=== PATIENT | female | born 1940 | race Caucasian/White ===

== ENCOUNTER 2016-10-27 08:05 | Outpatient (CLI) ==
[2016-10-27 12:35] LABS: BASOPHILS % (AUTO) 0.5 % (0.0-3.0); EOSINOPHILS # (AUTO) 0.1 K/ul (0.0-0.7); HEMATOCRIT 40.3 % (37.0-47.0); HEMOGLOBIN 13.2 g/dl (12.0-16.0); IMMATURE GRANULOCYTE % (AUTO) 0.5 % (0.0-5.0); LYMPHOCYTES # (AUTO) 1.7 K/uL (0.60-3.4); LYMPHOCYTES % (AUTO) 28.5 (10.0-50.0); MEAN CORPUSCULAR HEMOGLOBIN 29.3 pg (27.0-31.0); MEAN CORPUSCULAR HGB CONC 32.8 (31.8-35.4); MEAN CORPUSCULAR VOLUME 89.6 fl (81.0-99.0); MONOCYTES # (AUTO) 0.4 K/uL (0.4-2.0); MONOCYTES % (AUTO) 6.7 (0-10); NEUTROPHILS # (AUTO) 3.8 K/ul (2.0-6.9); NEUTROPHILS % (AUTO) 62.8; PLATELET COUNT 310 10^3/uL (140-440); WHITE BLOOD COUNT 6.08 K/ul (4.6-10.2)
[2016-10-27 12:47] LABS: BILIRUBIN,URINE Negative (NEGATIVE); KETONES,URINE Negative (NEGATIVE); LEUKOCYTE ESTERASE ,URINE Trace (NEGATIVE); NITRITE,URINE Negative (NEGATIVE); PH,URINE 7.5 (5-9); PROTEIN,URINE Negative (NEGATIVE); URINE, BLOOD Trace-intact (NEGATIVE)
[2016-10-27 12:51] LABS: ADD URINE MICROSCOPIC YES; BACTERIA,URINE TRACE (NOT PRESENT)
[2016-10-27 12:52] LABS: ALBUMIN 3.4 g/dL (3.4-5.0); ALBUMIN/GLOBULIN RATIO 1.03; ANION GAP 12.4; BILIRUBIN,TOTAL 0.62 mg/dL (0.00-1.20); BUN/CREATININE RATIO 14.86; CALCIUM 9.1 mg/dL (8.2-10.2); CHOL/HDL RATIO 5.9 (4.5-5.5); CREATININE 0.74 mg/dL (0.60-1.30); POTASSIUM 4.4 mmol/L (3.5-5.10); TOTAL PROTEIN 6.7 g/dL (5.8-8.1)
== END 2016-10-27 08:06 | disposition home or self-care (01) ==
LOC: LAB 08:05
PROVIDERS: ATTEND General Practice
DX: I10 Essential (primary) hypertension (principal); E78.5 Hyperlipidemia, unspecified; R31.29 Other microscopic hematuria; Z79.899 Other long term (current) drug therapy
CPT/HCPCS: 36415; 80053; 80061; 81001; 85025

== ENCOUNTER 2017-02-01 11:36 | Outpatient (CLI) ==
[2017-02-01 13:51] LABS: BILIRUBIN,URINE Negative (NEGATIVE); KETONES,URINE Negative (NEGATIVE); LEUKOCYTE ESTERASE ,URINE Negative (NEGATIVE); NITRITE,URINE Negative (NEGATIVE); PROTEIN,URINE Negative (NEGATIVE); URINE, BLOOD Trace-intact (NEGATIVE)
[2017-02-01 13:54] LABS: ADD URINE MICROSCOPIC YES
[2017-02-01 13:57] LABS: BACTERIA,URINE TRACE (NOT PRESENT)
== END 2017-02-01 11:37 | disposition home or self-care (01) ==
LOC: LAB 11:36
PROVIDERS: ATTEND General Practice
DX: N39.0 Urinary tract infection, site not specified (principal)
CPT/HCPCS: 81001

== ENCOUNTER 2017-02-22 08:14 | Outpatient (CLI) ==
[2017-02-22 12:39] LABS: BASOPHILS % (AUTO) 0.3 % (0.0-3.0); EOSINOPHILS # (AUTO) 0.1 K/ul (0.0-0.7); EOSINOPHILS % (AUTO) 2.4 % (0.0-7.0); HEMATOCRIT 39.1 % (37.0-47.0); HEMOGLOBIN 12.9 g/dl (12.0-16.0); IMMATURE GRANULOCYTE % (AUTO) 0.5 % (0.0-5.0); LYMPHOCYTES # (AUTO) 1.6 K/uL (0.60-3.4); LYMPHOCYTES % (AUTO) 27.6 (10.0-50.0); MEAN CORPUSCULAR HEMOGLOBIN 29.6 pg (27.0-31.0); MEAN CORPUSCULAR VOLUME 89.7 fl (81.0-99.0); MONOCYTES # (AUTO) 0.4 K/uL (0.4-2.0); MONOCYTES % (AUTO) 7.4 (0-10); NEUTROPHILS # (AUTO) 3.6 K/ul (2.0-6.9); NEUTROPHILS % (AUTO) 61.8; PLATELET COUNT 287 10^3/uL (140-440); RED BLOOD COUNT 4.36 10^6/ul (4.20-5.40); WHITE BLOOD COUNT 5.83 K/ul (4.6-10.2)
[2017-02-22 12:41] LABS: BILIRUBIN,URINE Negative (NEGATIVE); KETONES,URINE Negative (NEGATIVE); LEUKOCYTE ESTERASE ,URINE 1+ (NEGATIVE); NITRITE,URINE Negative (NEGATIVE); PH,URINE 6.5 (5-9); PROTEIN,URINE Negative (NEGATIVE); URINE, BLOOD 1+ (NEGATIVE)
[2017-02-22 12:50] LABS: ALBUMIN 3.4 g/dL (3.4-5.0); ALBUMIN/GLOBULIN RATIO 1.17; ANION GAP 14.3; BILIRUBIN,TOTAL 0.58 mg/dL (0.00-1.20); BUN/CREATININE RATIO 15.27; CALCIUM 9.1 mg/dL (8.2-10.2); CHOL/HDL RATIO 5.2 (4.5-5.5); CREATININE 0.72 mg/dL (0.60-1.30); POTASSIUM 4.3 mmol/L (3.5-5.10); TOTAL PROTEIN 6.3 g/dL (5.8-8.1)
[2017-02-22 12:55] LABS: ADD URINE MICROSCOPIC YES
[2017-02-22 12:57] LABS: BACTERIA,URINE TRACE (NOT PRESENT)
== END 2017-02-22 08:15 | disposition home or self-care (01) ==
LOC: LAB 08:14
PROVIDERS: ATTEND General Practice
DX: E78.5 Hyperlipidemia, unspecified (principal); I10 Essential (primary) hypertension; K57.32 Diverticulitis of large intestine without perforation or abscess without bleeding; Z79.899 Other long term (current) drug therapy
CPT/HCPCS: 36415; 80053; 80061; 81001; 85025; 87086

== ENCOUNTER 2017-06-07 09:47 | Outpatient (CLI) ==
--- NOTE | 2017-06-08 08:51 | MAMMO ---
EXAM: Digital screening mammogram HISTORY: Screening COMPARISON: 05/29/2013 FINDINGS: Digital MLO and CC views of the right and left breast were performed. Computer aided de tection was utilized. There are scattered fibroglandular densities. There is no evidence for mass, asymmetry, distortion, or suspicious calcifications in either breast. IMPRESSION: 1. No evidence of malignancy in the right or left breast. 2. Annual screening mammogram is recommended in one year. BIRADS category 1, negative examination
== END 2017-06-07 09:48 | disposition home or self-care (01) ==
LOC: RAD 09:47
PROVIDERS: ATTEND General Practice
DX: Z12.31 Encounter for screening mammogram for malignant neoplasm of breast (principal)
CPT/HCPCS: 77067

== ENCOUNTER 2017-09-07 12:34 | Outpatient (CLI) ==
[2017-09-07 13:23] LABS: BILIRUBIN,URINE Negative (NEGATIVE); KETONES,URINE Negative (NEGATIVE); LEUKOCYTE ESTERASE ,URINE Trace (NEGATIVE); NITRITE,URINE Negative (NEGATIVE); PROTEIN,URINE Negative (NEGATIVE); URINE, BLOOD Trace-lysed (NEGATIVE)
[2017-09-07 13:29] LABS: ADD URINE MICROSCOPIC NO; BASOPHILS % (AUTO) 0.3 % (0.0-3.0); EOSINOPHILS # (AUTO) 0.1 K/ul (0.0-0.7); EOSINOPHILS % (AUTO) 0.9 % (0.0-7.0); HEMATOCRIT 40.3 % (37.0-47.0); HEMOGLOBIN 13.6 g/dl (12.0-16.0); IMMATURE GRANULOCYTE % (AUTO) 0.4 % (0.0-5.0); LYMPHOCYTES # (AUTO) 1.6 K/uL (0.60-3.4); MEAN CORPUSCULAR HEMOGLOBIN 29.9 pg (27.0-31.0); MEAN CORPUSCULAR HGB CONC 33.7 (31.8-35.4); MEAN CORPUSCULAR VOLUME 88.6 fl (81.0-99.0); MONOCYTES # (AUTO) 0.5 K/uL (0.4-2.0); MONOCYTES % (AUTO) 6.8 (0-10); NEUTROPHILS # (AUTO) 4.6 K/ul (2.0-6.9); NEUTROPHILS % (AUTO) 67.6; PLATELET COUNT 342 10^3/uL (140-440); RED BLOOD COUNT 4.55 10^6/ul (4.20-5.40)
[2017-09-07 14:13] LABS: ALBUMIN 3.4 g/dL (3.4-5.0); ALBUMIN/GLOBULIN RATIO 1.03; ANION GAP 13.4; BILIRUBIN,TOTAL 0.54 mg/dL (0.00-1.20); BUN/CREATININE RATIO 17.14; CALCIUM 9.3 mg/dL (8.2-10.2); CREATININE 0.7 mg/dL (0.60-1.30); POTASSIUM 4.4 mmol/L (3.5-5.10); TOTAL PROTEIN 6.7 g/dL (5.8-8.1)
[2017-09-08 08:24] LABS: CHOL/HDL RATIO 5.7 (4.5-5.5)
== END 2017-09-07 12:35 | disposition home or self-care (01) ==
LOC: LAB 12:34
PROVIDERS: ATTEND General Practice
DX: I10 Essential (primary) hypertension (principal); Z79.899 Other long term (current) drug therapy
CPT/HCPCS: 36415; 80053; 80061; 81001; 84439; 85025

== ENCOUNTER 2018-01-02 09:11 | Outpatient (CLI) | END 2018-01-02 09:12 | disposition home or self-care (01) | LOC: FCC-LAB 09:11 | PROVIDERS: ATTEND General Practice | DX: E78.1 Pure hyperglyceridemia (principal); E55.9 Vitamin D deficiency, unspecified; Z79.899 Other long term (current) drug therapy | CPT/HCPCS: 36415; 80053; 80061; 81001; 82306; 85025 ==

== ENCOUNTER 2018-03-17 15:29 | Outpatient (CLI) ==
--- NOTE | 2018-03-17 15:50 | DI ---
EXAM: Two views of the chest. History: Fever. Findings: Heart size is normal. No focal consolidation. No appreciable pleural fluid and no pneumo thorax. No acute osseous abnormalities. Impression: No acute cardiopulmonary process.
== END 2018-03-17 15:30 | disposition home or self-care (01) ==
LOC: LAB 15:29
PROVIDERS: ATTEND General Practice
DX: R50.9 Fever, unspecified (principal)
CPT/HCPCS: 36415; 80053; 81001; 85025; 85651; 87086; 87651; 87804

== ENCOUNTER 2018-03-17 16:53 | Emergency (ER) | payer OTHER ==
[2018-03-17 16:59] VITALS: BP 107/62; TEMP 98.2; BMI 24.9
--- NOTE | 2018-03-17 18:08 | ED.PDOC ---
General ED Provider: Dr. HAI STERN MD Chief Complaint: Syncope Stated Complaint: i was lightheaded and fainted Time Seen by Physician: 17:08 Mode of Arrival: Ambulance Information Source: Patient, EMT Exam Limitations: No limitations [facility] Within Last 72 Hours for Same Complaint By: PCP Nursing and Triage Documentation Reviewed and Agree: Yes Reviewed sepsis parameters & appropriate labs ordered?: No System Inflammatory Response Syndrome: Not Applicable Sepsis Protocol: For patient's 13 years and over: Temp is 96.8 and below OR 101 and greater Pulse >90 BPM Resp >20/minute Acutely Altered Mental Status Are patient's symptoms suggestive of a new infection, such as: -Pneumonia -Skin, Soft Tissue -Endocarditis -UTI -Bone, Joint Infection -Implantable Device -Acute Abdominal Infection -Wound Infection -Meningitis -Blood Stream Catheter Infection -Unknown Review of Systems - Review Of Systems Constitutional: Reports: Chills Eyes: Reports: No symptoms Ears, Nose, Mouth, Throat: Reports: No symptoms Respiratory: Reports: No symptoms Cardiac: Reports: Syncope GI: Reports: No symptoms : Reports: No symptoms Musculoskeletal: Reports: No symptoms Skin: Reports: No symptoms Neurological: Reports: No symptoms Endocrine: Reports: No symptoms Hematologic/Lymphatic: Reports: No symptoms All Other Systems: Reviewed and Negative Past Medical History - Past Medical History Previously Healthy: Yes Endocrine: Reports: None Cardiovascular: Reports: None Respiratory: Reports: None Hematological: Reports: None Gastrointestinal: Reports: None Genitourinary: Reports: None Neuro/Psych: Reports: None Musculoskeletal: Reports: None Cancer: Reports: None Last Menstrual Period: n/a - Surgical History General Surgical History: Reports: None - Family History Family History: Reports: None - Social History Smoking Status: Never smoker Hx Substance Use: No Alcohol Screening: None Physical Exam - Physical Exam Appearance: Well-appearing, No pain distress, Well-nourished, Thin Ill-appearing: None Pain Distress: None Eyes: DAYDAY, EOMI, Conjunctiva clear ENT: Ears normal, Nose normal, Oropharynx normal Respiratory: Airway patent, Breath sounds clear, Breath sounds equal, Respirations nonlabored Cardiovascular: RRR, Pulses normal, No rub, No murmur GI/: Soft, Nontender, No masses, Bowel sounds normal, No Organomegaly Musculoskeletal: Normal strength, ROM intact, No edema, No calf tenderness Skin: Warm, Dry, Normal color Neurological: Sensation intact, Motor intact, Reflexes intact, Cranial nerves intact, Alert, Oriented Psychiatric: Affect appropriate, Mood appropriate Interpretation - EKG Interpretation Rate: Normal Critical Care Note - Critical Care Note Total Time (mins): 0 Course - Course Orders, Labs, Meds: Orders Category Date Time Status EKG-(ED ONLY) Stat CARDIO 03/17/18 17:13 Completed Vital Signs: Temp Pulse Resp BP Pulse Ox 03/17/18 16:54 98.2 F 72 20 107/62 95 Departure - Departure Time of Disposition: 18:15 Disposition: HOME SELF-CARE Discharge Problem: Syncope Condition: Good Pt referred to PMD for follow-up: Yes IPMP verified?: No Allergies/Adverse Reactions: Allergies influenza virus vaccine, specific Allergy (Verified 03/17/18 16:59) CHILLS, FEVER Home Medications: Ambulatory Orders Flaxseed Oil [Flax Seed Oil] 1,000 mg PO DAILY 05/07/15 Lisinopril/Hydrochlorothiazide [Lisinopril-Hctz 10-12.5 Mg Tab] 0.5 each PO DAILY 05/07/15 Calcium Carbonate/Vitamin D3 [Calcium + Vitamin D Tablet] 1 each PO DAILY #30 tab-cap 10/01/15
[2018-03-17] MEDS: SOLU-MEDROL 40 MG IVP STA (18:15)
[2018-03-17] MEDS: ZOFRAN 4 MG/2 ML IVP STA (18:22)
== END 2018-03-17 18:43 | disposition home or self-care (01) ==
LOC: ED 16:53
DX: R55 Syncope and collapse (principal); R56.9 Unspecified convulsions; R50.9 Fever, unspecified; R53.1 Weakness; R11.0 Nausea; R22.1 Localized swelling, mass and lump, neck
CPT/HCPCS: 36415; 80053; 81001; 85025; 85651; 87086; 87651; 87804; 93005; 93010; 96374; 96375; 99283

== ENCOUNTER 2018-03-18 19:01 | Inpatient (IN) | payer OTHER ==
[2018-03-18 19:54] VITALS: BMI 24.0
[2018-03-18] MEDS ORDERED: LOTRIMIN TP PRN (21:21)
[2018-03-18] MEDS ORDERED: [UNRECOGNIZED DRUG - MIXTURE] IV SCH (21:30)
[2018-03-18] MEDS ORDERED: POTASSIUM CHLORIDE 20 MEQ VIAL-ADDITIVE ONLY IV ONE (23:12)
[2018-03-19] MEDS: DOXY-100 100 MG in SODIUM CHLORIDE 100 ML IV SCH ×3 (00:29→21:28)
[2018-03-19] MEDS: FLAXSEED OIL 1000 MG PO SCH (08:38)
[2018-03-19] MEDS: HYDROCHLOROTHIAZIDE PO SCH (08:45)
[2018-03-19] MEDS: ZESTRIL PO SCH (08:46)
[2018-03-19] MEDS ORDERED: NON-FORMULARY MEDICATION (Calcium Carbonate/Vitamin D3 [Calcium 600-Vit D3 200 Tablet] 1 E PO SCH (09:00)
[2018-03-19] MEDS ORDERED: CALCIUM 500 + VIT D 200 MG TABLET PO SCH (09:00)
[2018-03-19] MEDS: NON-FORMULARY MEDICATION (Calcium Carb/Vitamin D3/Vit K1 [Calcium + D Soft Chewable Tab] 1 PO SCH (09:01)
[2018-03-19] MEDS ORDERED: POTASSIUM CHLORIDE 20 MEQ VIAL-ADDITIVE ONLY IV ONE ×2 (15:44→21:59)
[2018-03-19] MEDS: [UNRECOGNIZED DRUG - MIXTURE] IV SCH ×2 (15:54→22:04)
[2018-03-20] MEDS: HYDROCHLOROTHIAZIDE PO SCH (10:53)
[2018-03-20] MEDS: DOXY-100 100 MG in SODIUM CHLORIDE 100 ML IV SCH ×2 (10:53→21:00)
[2018-03-20] MEDS: ZESTRIL PO SCH (10:54)
[2018-03-20] MEDS: FLAXSEED OIL 1000 MG PO SCH (11:08)
[2018-03-20] MEDS: NON-FORMULARY MEDICATION (Calcium Carb/Vitamin D3/Vit K1 [Calcium + D Soft Chewable Tab] 1 PO SCH (11:08)
[2018-03-20] MEDS ORDERED: POTASSIUM CHLORIDE 20 MEQ VIAL-ADDITIVE ONLY IV ONE (14:06)
[2018-03-20] MEDS: [UNRECOGNIZED DRUG - MIXTURE] IV SCH (14:14)
[2018-03-21] MEDS ORDERED: POTASSIUM CHLORIDE 20 MEQ VIAL-ADDITIVE ONLY IV ONE (06:18)
[2018-03-21] MEDS: [UNRECOGNIZED DRUG - MIXTURE] IV SCH ×2 (06:24→08:19)
[2018-03-21] MEDS: DOXY-100 100 MG in SODIUM CHLORIDE 100 ML IV SCH (08:18)
[2018-03-21] MEDS: HYDROCHLOROTHIAZIDE PO SCH (08:18)
[2018-03-21] MEDS: NON-FORMULARY MEDICATION (Calcium Carb/Vitamin D3/Vit K1 [Calcium + D Soft Chewable Tab] 1 PO SCH (08:19)
[2018-03-21] MEDS: ZESTRIL PO SCH (08:19)
[2018-03-21] MEDS: FLAXSEED OIL 1000 MG PO SCH (08:19)
[2018-03-21 15:15] VITALS: BP 127/70; TEMP 98.8
--- NOTE | 2018-03-23 11:38 | HP ---
DATE OF SERVICE: 03/18/18 DATE OF VISIT: 03/18/18 CHIEF COMPLAINT: Fatigue, fever, dizziness and syncope. HISTORY OF PRESENT ILLNESS: The patient about two weeks or more was in a dealership waiting for her care to be fixed and a blower was directed towards her left side of the face. The patient after that experienced pain and swelling on the left side of the face extending towards the back of the ear. She claimed that the area was markedly tender and painful. She also felt chilly sensations, however she did not use a thermometer to see she had any fever. The swelling had subsided. She finally came to the office on 03/17/2018 because of persistent fever or 100 or slightly beyond. The patient mentioned that she had removed ticks from her head several times. The patient on examination appeared to be somewhat tired, responsive and oriented. No significant abnormalities were noted on physical examination. The patient was sent for blood tests, as well as chest x-ray to help in the determination of her problems. She had a rapid strep done at the office, as well as a rapid influenza A and B. CBC, ESR, CMP, UA and chest x-ray were ordered. When the patient returned to the office, she was in the room and came out of the room and told me that she doesn't feel good and she was going pass out. I ushered her back to the room and laid her down in bed. I asked for the coworkers to come and the patient loss consciousness and had involuntary movements of the face, as well as the arms very briefly. The patient regained consciousness in less than a minute. She could not remember what happened. Her blood pressure systolic was recorded at 1:36. Because of the syncopal episode and fever, this patient was sent to the emergency room for further evaluation . The patient in the emergency room was given a shot of prednisone and steroidal and sent home. I contacted the son, but he did not live with her , so I called her at home and she answered the phone. I asked her how she was doing and she claimed that she is feeling better. I did proceed to inform her that if she is willing to come to the hospital that I would like to admit her to the hospital to do some more examinations and testing to find the reason for the loss of consciousness and the fever that had been intermittent for more than two weeks. She claimed that she is feeling better and that she would just stay at home. I did tell her to call me if she would have any concerns. The patient on 03/18/18 in the afternoon did call me that she now has developed a fever and would like to come to the hospital, so I told her she should come to the hospital and I would reserve a room for her for admission. The patient was then admitted because of fever, syncopal episodes, fatigue and history of multiple tick bites recently. 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 Hypothyroidism, hepatitis as a child, hypertension in 1989, childhood diseases consisting of measles and varicella and also diverticulitis is 1989, plus dyslipidemia. FAMILY HISTORY: Mother had lymphoma and at old age, 93. Father had emphysema and was a smoker also with coronary artery disease and at age 77. Grandfather and grandmother had CVA and at age 63. SOCIAL HISTORY: The patient is and resides alone with the support of the family. One of the sons now is residing with her. She never did smoke in her life and no alcoholic beverages. Denied any use of illicit drugs. MEDICATIONS: Prior to this admission consisted of the following: Flaxseed Oil 1,000 mg capsule daily Calcium Carbonate plus Vitamin D3 one daily Calcium plus Vitamin D soft chewable tablet one daily. Lotrimin cream to be applied externally. ALLERGIES: Influenza vaccine. REVIEW OF SYSTEMS: CONSTITUTIONAL: The patient has fever with chilly sensation, but no actual chills. The patient has some fatigue. OUTLET MANAGER: The patient is alert and responsive. No history of seizure, but had syncopal episode on the day that she was seen at the office. It could very well be orthostatic hypotension causing the problem. VISUAL: Denies any double vision, blurred vision or loss of vision. AUDITORY: She has decreased hearing and probably the reason for slower responses to question. Denies any tinnitus, pain in both ears or drainage. RESPIRATORY: The patient denies any cough or any shortness of breath with usual exertion. CARDIOVASCULAR: Denies any chest pain or chest tightness. GASTROINTESTINAL: The patient's appetite had been decreased since this episode of intermittent fever. She denies any abdominal pain or diarrhea. GENITOURINARY: Denies any pain on urination. MUSCULOSKELETAL: Denies any significant joint pains. ENDOCRINE: Negative. INTEGUMENT: Denies any rash pruritus. HEMATOLOGIC: No history of prolonged bleeding. PSYCHIATRIC: Affect appears to be slightly flat.. PHYSICAL EXAMINATION: GENERAL: We have a 78 year old female admitted to the hospital because of fever, fatigue, syncopal episode. She has multiple bites caused by ticks. VITAL SIGNS: Temperature on admission 99.3, pulse 75, blood pressure left 119/68 , right 131/70, respiratory rate 18, oxygen saturation 94 at room air. She is 140 pounds and 6.9 ounces, BMI is 24. She is 5'4". HEAD: Unremarkable. Scalp with no area of redness identified. I did examine the scalp very well since she claimed that she had removed several ticks from the hair. FACE: Symmetrical and equal with no facial weakness and no redness. Palpation of the frontal and maxillary sinus areas does not produce any tenderness. EYES: Pupils equal/reactive to light about 3 mm in size and round. Conjunctivae not pale. Sclerae not icteric. EARS: Unremarkable. MOUTH: Unremarkable. THROAT: No inflammation, tumors or exudate. NECK: No masses. No bruit. No tenderness. No rigidity. CHEST: Essentially symmetrical and equal with good expansion and no tenderness. BREASTS: Not examined. LUNGS: Breath sounds are heard in both sides. No rales or wheezing. HEART: Audible and regular with good tones. No murmurs. ABDOMEN: Flat, soft with no remarkable tenderness. No guarding. Bowel sounds are active. No masses palpable. There are no [place] erythemas in the abdomen , as well as the back. EXTERNAL GENITALIA: Not examined. PELVIC AND RECTAL: Not performed. LOWER EXTREMITIES: Essentially symmetrical and equal with no pitting edema. Pedal pulses are diminished. UPPER EXTREMITIES: Symmetrical and equal. ASSESSMENT: 1. INTERMITTENT PERSISTENT FEVER, ETIOLOGY UNDETERMINED 2. HISTORY OF TICK BITE 3. HISTORY OF SYNCOPAL EPISODE 4. HISTORY OF HYPERTENSION MTDD
--- NOTE | 2018-03-23 13:44 | DS ---
DATE OF SERVICE: 03/21/18 PATIENT IDENTIFICATION: 78 year old female who was seen initially at the office because of fever and not feeling well with a history of multiple tick bites. Her appetite has decreased and the son, who was familiar with her felt like she might be dehydrated. The patient appeared sluggish during the examination, but no significant abnormalities during the course of this physical examination. The patient was for a CBC, CMP and Sed rate, as well as chest x-ray. All these were without any remarkable abnormalities. This patient while in the office coming from the labs and x-ray had a syncopal episode. She knew that she was going to pass out and we were able to put her on the examining table. The syncopal episode lasted less than a minute and the patient regained consciousness without remembering the incident. She, however, approached me and told me that she was going to pass out. She was then sent from the office to the emergency room, however no further work up was done and the patient was discharged home after an injection of 40 mg of Prednisone. I had contacted this patient at home and gave her an option to be admitted, however she felt better that morning on 03/18/2018, but later on developed a fever and did again contact me and she was then admitted to the hospital. HOSPITAL COURSE: While in the hospital, the patient's temperature had spiked and the highest was 101.2. This happened on 03/20/2018 at 2 a.m. The patient soon after that also had a syncopal episode. She was sent to the emergency room for further evaluation and had several studies including a CT scan of the head, neck, proximal facial and all were negative for any fracture or acute bony injuries. The patient's ehrlichia, Marry and western blot were negative. The patient had Rickettsiae IgG antibody positive. ehrlichia also was requested and there are no results at this time. Blood culture was negative after three days. Random urine culture was negative for growth. The patient was still not feeling well. She was continued on fluid, plus electrolyte replacement. Her appetite remained poor consuming anywhere between 10 to 25 percent of the meals. This patient will be continued on the antibiotics consisting of Doxycycline believing that the problem may still be secondary to either ehrlichia, Lyme or [place]. The patient on discharge 03/21/2018 was alert with movement of all extremities. LUNGS: Clear. HEART: Normal sinus rhythm. ABDOMEN: Nontender. LOWER EXTREMITIES: No tenderness in the calf muscles. FACE: This patient has a small ecchymosis on the left side of the face from the fall 03/20/2018. The patient was standing when she was discovered by the nurse. There was however blood in the floor and she had an ecchymosis on the left side. She doesn't know what happened. She was in the bathroom when she was discovered. VITAL SIGNS: At discharge on 03/21/2018 at 2 p.m. showed a temperature of 98.8, pulse 63, blood pressure 127/70, respiratory rate 220, oxygen saturation 96. This patient is discharged from acute care and admitted to Transitional Care for further antibiotic therapy and further examination. Consultation probably will be requested, Cardiology, to see if there is any agitations in the heart causing the fever. She is also needed at least a general evaluation from the [employer] for these problems. FINAL DIAGNOSES: 1. FEVER, SUBSIDING, ETIOLOGY UNDETERMINED 2. HISTORY OF MULTIPLE TICK BITES 3. HISTORY OF SYNCOPAL EPISODES TIMES TWO 4. HYPERTENSION ON SMALL AMOUNT OF MEDICATIONS, 5 MG OF LISINOPRIL 12.5 MG AND HYDROCHLOROTHIAZIDE PROGNOSIS: Guarded. MTDD
== END 2018-03-21 15:25 | disposition swing bed (61) | DRG 312 ==
LOC: MEDSURG B 19:01
PROVIDERS: ADMIT General Practice; ATTEND General Practice
DX: R55 Syncope and collapse (principal); A79.9 Rickettsiosis, unspecified; I10 Essential (primary) hypertension; R50.9 Fever, unspecified; R22.0 Localized swelling, mass and lump, head; H92.02 Otalgia, left ear; R51 Headache
CPT/HCPCS: 36415; 80053; 81001; 84145; 84484; 85025; 86617; 86710; 86757; 87040; 87086; 87798; 93005; 93010; 93227

== ENCOUNTER 2018-03-20 04:13 | Emergency (ER) ==
[2018-03-20 04:27] VITALS: BP 123/59; TEMP 101.4; BMI 24.9
--- NOTE | 2018-03-20 05:24 | CT ---
EXAM: CT head without contrast 03/20/2018. Sagittal and coronal reformatted images obtained HISTORY: Fall COMPARISON: None. FINDINGS: There is no evidence of intracranial hemorrhage. The midline is maintained. There is no h ydrocephalus. Mild atrophy and chronic small vessel ischemic change. No cerebellar tonsillar ectopi a. Evaluation of the calvarium shows no fracture. The mastoid air cells are normally pneumatized. IMPRESSION: No acute intracranial abnormality.
--- NOTE | 2018-03-20 05:26 | CT ---
EXAM: CT cervical spine without intravenous contrast 03/20/2018. Sagittal and coronal reformatted i mages obtained HISTORY: Fall COMPARISON: None. FINDINGS: Normal anatomic line is maintained. Vertebral bodies appear intact without fracture. The facet joints align normally. The prevertebral soft tissues appear within normal limits There is no fracture or subluxation identified at any level. Multilevel chronic degenerative disc dis ease is most severe at C4-C5 and C5-C6. IMPRESSION: No acute osseous abnormality of the cervical spine.
--- NOTE | 2018-03-20 05:32 | CT ---
EXAM: CT maxillofacial without intravenous contrast 03/20/2018. Sagittal and coronal reformatted im ages obtained HISTORY: Fall COMPARISON: None. FINDINGS: The orbits, zygoma, nasal bones, maxilla and mandible appear intact. There is no evidence of fracture. The frontal, ethmoidal, sphenoidal and maxillary sinuses appear well aerated. No gross soft tissue abnormality. The intraorbital contents appear intact and symmetric. IMPRESSION: No acute osseous abnormality of the facial bones.
--- NOTE | 2018-03-20 05:59 | ED.PDOC ---
General ED Provider: Dr. HAI WEBER-ER Chief Complaint: Fall Stated Complaint: i went to the bathroom and felll and hit by head Time Seen by Physician: 04:15 Mode of Arrival: Stretcher Information Source: Patient Exam Limitations: No limitations [facility] Nursing and Triage Documentation Reviewed and Agree: Yes Reviewed sepsis parameters & appropriate labs ordered?: Yes System Inflammatory Response Syndrome: Not Applicable Sepsis Protocol: For patient's 13 years and over: Temp is 96.8 and below OR 101 and greater Pulse >90 BPM Resp >20/minute Acutely Altered Mental Status Are patient's symptoms suggestive of a new infection, such as: -Pneumonia -Skin, Soft Tissue -Endocarditis -UTI -Bone, Joint Infection -Implantable Device -Acute Abdominal Infection -Wound Infection -Meningitis -Blood Stream Catheter Infection -Unknown Trauma/Injury Complaint Exam - Facial Injury Complaint/Exam Location of Pain: Reports: Left, Forehead Mechanism of Injury: Reports: Trauma Onset/Duration: 15min Symptoms Are: Still present Onset of Pain: Reports: Immediate Initial Severity: Mild Current Severity: Mild Location: Reports: Discrete Character: Reports: Dull, Aching Alleviating: Reports: None Aggravating: Reports: None Associated Signs and Symptoms: Reports: Bruising Related Surgical History: Reports: None Facial Findings: Present: Ecchymosis Differential Diagnoses: Abrasion, Contusion, Fracture Review of Systems - Review Of Systems Constitutional: Reports: Fever (admitted for fever tx) Eyes: Reports: No symptoms Ears, Nose, Mouth, Throat: Reports: No symptoms Respiratory: Reports: No symptoms Cardiac: Reports: No symptoms GI: Reports: No symptoms : Reports: No symptoms Musculoskeletal: Reports: No symptoms Skin: Reports: No symptoms Neurological: Reports: Headache Endocrine: Reports: No symptoms Hematologic/Lymphatic: Reports: No symptoms All Other Systems: Reviewed and Negative Past Medical History - Past Medical History Previously Healthy: Yes Endocrine: Reports: None Cardiovascular: Reports: None Respiratory: Reports: None Hematological: Reports: None Gastrointestinal: Reports: None Genitourinary: Reports: None Neuro/Psych: Reports: None Musculoskeletal: Reports: None Cancer: Reports: None Last Menstrual Period: PT HAS HAD A HYSTERECTOMY - Surgical History General Surgical History: Reports: None - Family History Family History: Reports: None - Social History Smoking Status: Never smoker Hx Substance Use: No Alcohol Screening: None - Immunizations Tetanus Shot up to Date: (UNKNOWN) Physical Exam - Physical Exam Appearance: Well-appearing, No pain distress, Well-nourished Pain Distress: Mild Eyes: DAYDAY, EOMI, Conjunctiva clear ENT: Ears normal, Nose normal, Oropharynx normal Neck: Supple Respiratory: Airway patent, Breath sounds clear, Breath sounds equal, Respirations nonlabored Cardiovascular: RRR, Pulses normal, No rub, No murmur GI/: Soft, Nontender, No masses, Bowel sounds normal, No Organomegaly Musculoskeletal: Normal strength, ROM intact, No edema, No calf tenderness Skin: Warm, Dry, Normal color Neurological: Sensation intact, Motor intact, Reflexes intact, Cranial nerves intact, Alert, Oriented Psychiatric: Affect appropriate Interpretation - Radiology Interpretation Radiology Interpretation By: Radiologist Radiology Results: Negative Exam Interpreted: CT Scan Re-Evaluation - Re-Evaluation Time of Re-Evaluation: 05:59 Status: Improved Vital Signs Stable: Yes Pain Level: 0 Appearance: NAD Lungs: Clear Skin: Warm and Dry Neuro: Alert and Oriented X3 CV: RRR Critical Care Note - Critical Care Note Total Time (mins): 0 Course - Course Orders, Labs, Meds: Orders Category Date Time Status CT CERVICAL SPINE W/O CONTRAST Stat RADS 03/20/18 04:[address] HEAD W/O CONTRAST Stat RADS 03/20/18 04:[address] MAXILLOFACIAL W/O CONTRAST Stat RADS 03/20/18 04:42 Completed Vital Signs: Temp Pulse Resp BP Pulse Ox 03/20/18 04:13 101.4 F H 71 20 123/59 L 95 Departure - Departure Time of Disposition: 05:59 Disposition: ADMITTED INPATIENT Discharge Problem: Falls Instructions: Head Injury (ED) Condition: Good Pt referred to PMD for follow-up: Yes IPMP verified?: No Allergies/Adverse Reactions: Allergies influenza virus vaccine, specific Allergy (Verified 03/20/18 04:27) CHILLS, FEVER Home Medications: Ambulatory Orders Flaxseed Oil [Flax Seed Oil] 1,000 mg PO DAILY 05/07/15 Clotrimazole [Lotrimin AF] 24 gm TP PRN PRN 03/18/18 Calcium Carb/Vitamin D3/Vit K1 [Calcium + D Soft Chewable Tab] 1 tab PO DAILY Lisinopril 5 mg PO DAILY 03/20/18 Disposition Discussed With: Patient
== END 2018-03-20 06:00 | disposition other institution (70) ==
LOC: ED 04:13
DX: S00.83XA Contusion of other part of head, initial encounter (principal); W19.XXXA Unspecified fall, initial encounter
CPT/HCPCS: 99283

== ENCOUNTER 2018-03-21 15:33 | Inpatient (IN) ==
[2018-03-21 16:22] VITALS: BMI 24.0
[2018-03-21] MEDS ORDERED: LOTRIMIN TP PRN (16:30)
[2018-03-21] MEDS ORDERED: POTASSIUM CHLORIDE 20 MEQ VIAL IV ONE (18:00)
[2018-03-21] MEDS: DEXTROSE 5% IV SCH (18:18)
[2018-03-21] MEDS: [UNRECOGNIZED DRUG - OTHER] IV SCH (18:18)
[2018-03-21] MEDS: POTASSIUM CHLORIDE IV SCH (18:18)
[2018-03-21] MEDS: DOXY-100 100 MG in SODIUM CHLORIDE 100 ML IV SCH (20:33)
[2018-03-22] MEDS ORDERED: HYDROCHLOROTHIAZIDE PO SCH (09:00)
[2018-03-22] MEDS ORDERED: ZESTRIL PO SCH (09:00)
[2018-03-22] MEDS: DOXY-100 100 MG in SODIUM CHLORIDE 100 ML IV SCH ×2 (09:06→20:01)
[2018-03-22] MEDS: DECADRON 4 MG/ML SDV IM SCH (09:06)
[2018-03-22] MEDS: FLAXSEED OIL 1000 MG PO SCH (09:09)
[2018-03-22] MEDS: NON-FORMULARY MEDICATION (Calcium Carb/Vitamin D3/Vit K1 [Calcium + D Soft Chewable Tab] 1 PO SCH (09:09)
[2018-03-22] MEDS: DEXTROSE 5% IV SCH (10:52)
[2018-03-22] MEDS: POTASSIUM CHLORIDE IV SCH (10:52)
[2018-03-22] MEDS: [UNRECOGNIZED DRUG - OTHER] IV SCH (10:52)
[2018-03-22] MEDS: LOVENOX SUBCUT SCH (10:53)
--- NOTE | 2018-03-22 11:34 | RS.OTINEVL ---
Subjective - Patient information Date of Evaluation: 03/22/18 Date of Arrival on Unit: 03/21/18 Usual Living Arrangement: with son Living Arrangement Comments: Pt lives at home with her son. She was independent with her ADLS. Pt would us a quad cane to go up stairs sometimes. Home Environment: House, Stairs (many), Ramp Medical History: Hypertension Medical History Comments:: diverticulitis, fibroid tumors, syncope, fever, hysterectomy, hypothyroidectomy, GI disorder, Cardiac disorder, Pt has fainted 3X. Surgical History Comments:: hysterctomy, tonsillectomy Subjective Information/ Patient Comments:: "My arm is hurting. Maybe it is the medicine." "I need a pillow for this arm." - Level of function Abilities prior to this admission: Driving, Used a Quad cane for steps occasionally, did her own shopping, independent with self care management. Current Level of Function: Independent Current Equipment Used at Home: A quad cane occasionally when going up steps. Pain Assessment - Pain Pain Score: 6 Side: left Pain Location Body Site: Arm Pain Aggravating Factors: ADL's, Exercise/Activity, Walking Pain Alleviating Factors: Position Change Interventions - Objective Patient Orientation: Person, Place, Time, Situation Current Interventions: IV's, Telemetry Observation: Pt has difficulty with processing and following commands during the manual muscle testing of the evaluation. Pt has trouble trying to take large steps. Pt shuffles her feet. Interventions - ROM Right Upper Extremity AROM: WFL's Left Upper Extremity AROM: WFL's - Strength Right Upper Extremity Strength: Mild Weakness Left Upper Extremity Strength: Mild Weakness - Sensation Right Upper Extremity Sensation: Intact/Normal Left Upper Extremity Sensation: Intact/Normal Balance - Sitting Balance Static Sitting Balance: Good Dynamic Sitting Balance: Good - Standing Balance Static Standing Balance: Fair Dynamic Standing Balance: Poor - Comments Balance Assessment Comments: Pt has difficulty taking regular size steps as she walks. Pt has difficulty processing and compensates to cover her impairments. ADL Skills - Self Feeding Self Feeding: Independent - Grooming Grooming: Min Assist - Bathing Bathing UE: Min Assist Bathing LE: Min Assist - Dressing Dressing UE: Min Assist Dressing LE: Min Assist - Toilet Management Toileting Management: CGA Functional Mobility - Bed Mobility Rolling R/L: Independent Scooting: CGA Supine to Sit: CGA Sit to Supine: CGA - Transfers Sit to Stand: Min Assist, 1 person assist Stand to Sit: Min Assist, 1 person assist Stand Pivot Transfers: Min Assist, 1 person assist - Ambulation Weight Bearing Status: FWB Assistive Device Used: No Assistive Device Assistance needed with Ambulation: Min Assist Comments:: Pt would be more safe with a rolling walker. - Safety Awareness Safety Awareness: Fair ABDIEL INDEX SCORE: 65 Additional Treatment Performed - Additional units charged ADL: 16 - Time with patient Total treatment time: 32 Activities Do you enjoy playing games?: Yes Would you be interested in leaving your room for activities?: Yes Would you enjoy group activities?: Yes Do you have difficulty with your vision?: Yes Patient Interests:: Watching Television Patient Education Patient Education: Education of diagnosis, Home Exercise Program, Home Safety, Education of Plan of Care Teaching Recipient: Patient Teaching Methods: Discussion Assessment Problem List:: Decreased level of function, Requires training/education, Decreased safety/Risk of falls, Weakness, Pain limits previous level of function Rehab Potential: Good Further Therapy Indicated?: Yes Candidate for Swing Bed for Therapy Services?: yes Evaluation Complexity: HISTORY: Medium, EXAM OF BODY SYSTEMS: Medium, CLINICAL DECISION MAKING: Medium Short Term Goals - Goals GOAL 1: To increase dyn. standing balance to G/F- Goal to be met by: 03/29/18 GOAL 2: To increase BUE strength to 4/5. Goal to be met by: 03/29/18 GOAL 3: To increase activity tolerance to 15 minutes in standing. Goal to be met by: 03/29/18 Duck Operator Goals GOAL 1: To increase dyn. standing balance to Good Goal to be met by: 04/05/18 GOAL 2: To increase BUE strength to 4+/5. Goal to be met by: 04/05/18 GOAL 3: To increase safety of ADLS to Independent. Goal to be met by: 04/05/18 Plan Plan of Care: Therapeutic EX, Neuromuscular Re-Educ, Therapeutic Activity, Self- Care/Home Management Frequency of Treatment: 1-2 X day, as tolerated Duration of Treatment: 2 Weeks Anticipated Discharge Destination: Home Treatment Diagnosis (ICD 10 Codes): Muscle weakness M62.81, Reduced mobility Z74.0, Z74.1 Needs assistance with self care. Impaired motor processing. Has the Physician been added for Co-signature?: Yes
--- NOTE | 2018-03-22 12:49 | PCM.CONS ---
CONSULTING PROVIDER: Dr. RORO MENDOZA ATTENDING PROVIDER: Dr. WALDO [facility] DATE OF SERVICE: 03/22/18 SUBJECTIVE: This 78 year old WHITE/ F was hospitalized 03/21/18. The patient is seen in consultation with syncopal episode. The patient's syncope is likely from postural hypotension related to febrile illness for which she has been worked up thoroughly. The patient does not have headache. No visual problems. No significant weight loss. REVIEW OF SYSTEMS: CONSTITUTIONAL: No night sweats. No fatigue, malaise, lethargy. No fever or chills. HEENT: Eyes: No visual changes. No eye pain. No eye discharge. ENT: No runny nose. No epistaxis. No sinus pain. No odynophagia. No congestion. RESPIRATORY: Mild cough, no congestion. No hemoptysis. No shortness of breath. CARDIOVASCULAR: No angina symptoms. No CHF symptoms. No atypical chest pain for CAD. No palpitations. No orthopnea. GASTROINTESTINAL: No abdominal pain. No nausea or vomiting. No diarrhea or constipation. No hematemesis. No hematochezia. GENITOURINARY: No urgency. No frequency. No dysuria. No hematuria. No obstructive symptoms. No discharge. No pain. No significant abnormal bleeding. MUSCULOSKELETAL: No musculoskeletal pain; no joint swelling. NEUROLOGICAL: Awake, alert, oriented to time, place and person. No headache. No neck pain. No syncope. No seizures. No dizziness. PSYCHIATRIC: Not anxious. No depression. No suicidal thoughts. No homicidal thoughts. SKIN: No rash. No lesions. No wounds. ENDOCRINE: No unexplained weight loss. No weight gain. HEMATOLOGIC/LYMPHATIC: No anemia. No purpura. No petechiae. No prolonged or excessive bleeding. No palpable lymph nodes. PHYSICAL EXAMINATION: GENERAL: The patient is awake, alert and oriented, sitting in bed in no distress. VITAL SIGNS: Temperature 98.5 F, Pulse 64, Respiratory Rate 18, BP 103/75, Pulse Ox 97% HEENT: Head normocephalic, atraumatic. Eyes: Extraocular muscles are intact. Pupils are equal, round and reactive to light and accommodation. Ears: No lesions. Nose appeared normal. Throat: No exudate or erythema. NECK: Supple. No JVD, no carotid bruit. No lymphadenopathy or thyromegaly. LUNGS: Clear to auscultation. Percussion note normal. Chest symmetrical. HEART: S1, S2, no S3. Grade I/ systolic murmur with diastolic blow in the same area intercostal space. No cyanosis or clubbing. No ascites. Pulses: Dorsalis pedis and posterior tibial pulses +1 to +2 both sides. ABDOMEN: Soft. Non-tender. Bowel sounds active. No CVA tenderness. No mass felt. EXTREMITIES: No edema. Full range of motion of all extremities, equal. NEUROLOGIC: No focal deficit. Cranial nerves II through XII are grossly intact. No headache, no double vision or headache. SKIN: Warm and dry. Intact. Turgor-normal. LYMPHATIC: No palpable lymph nodes/no lymphedema. MUSCULOSKELETAL: Normal joints with no swelling. Muscle tone is normal. Echocardiogram did not reveal any evidence of endocarditis but vegetations are smaller than 2 mm and they will not show up. ASSESSMENT: 1. Syncope seems to be postural hypotension RECOMMENDATIONS/PLAN: 1. Agree with present management in swing bed 2. Continue telemetry 3. Will continue to follow 4. Will do echo in a couple of days with no charge to look again at valvular structure 5. 1/2 cc Decadron today and tomorrow Plan and coordination of the patient's care discussed in the presence of Content Engineer and Nurse. CONDITION: Stable SCRIBED BY: RYAN PAYNE Positive Printer Operator scribed while in presence of service performed by Dr. RORO MENDOZA on 03/22/18 (1230)
--- NOTE | 2018-03-22 13:50 | CONS ---
DATE OF SERVICE: 03/21/18 (The patient has a written consult also) SUBJECTIVE: The patient was seen on consult because of syncope. The patient had prior workup with CT scan of the head, carotid scan. Today I did the echo which showed LVH with normal LV contractility with calcific aortic valves. No evidence of any vegetations noted. No thrombus. REVIEW OF SYSTEMS: CONSTITUTIONAL: No night sweats. No fatigue, malaise, lethargy. No fever or chills. HEENT: Eyes: No visual changes. No eye pain. No eye discharge. ENT: No runny nose. No epistaxis. No sinus pain. No sore throat. No odynophagia. No congestion. RESPIRATORY: No cough, no congestion. No hemoptysis. No shortness of breath. CARDIOVASCULAR: No angina symptoms. No CHF symptoms. No atypical chest pain for CAD. No palpitations. No orthopnea. GASTROINTESTINAL: No abdominal pain. No nausea or vomiting. No diarrhea or constipation. No hematemesis. No hematochezia. GENITOURINARY: No urgency. No frequency. No dysuria. No hematuria. No obstructive symptoms. No discharge. No pain. No significant abnormal bleeding. MUSCULOSKELETAL: No musculoskeletal pain; no joint swelling. NEUROLOGICAL: No headache. No neck pain. No syncope. No seizures. No dizziness. PSYCHIATRIC: Not anxious. No depression. No suicidal thoughts. No homicidal thoughts. SKIN: No rash. No lesions. No wounds. ENDOCRINE: No unexplained weight loss. No weight gain. HEMATOLOGIC/LYMPHATIC: No anemia. No purpura. No petechiae. No prolonged or excessive bleeding. No palpable lymph nodes. PHYSICAL EXAMINATION: HEENT: Head normocephalic, atraumatic. Eyes: Extraocular muscles are intact. Pupils are equal, round and reactive to light and accommodation. Ears: No lesions. Nose appeared normal. Throat: No exudate or erythema. NECK: Supple. No JVD, no carotid bruit. No lymphadenopathy or thyromegaly. LUNGS: Clear to auscultation. Percussion note normal. Chest symmetrical. HEART: S1, S2, no S3. Grade I to II/ diastolic murmur. No cyanosis or clubbing. No ascites. Pulses: Dorsalis pedis and posterior tibial pulses +2 both sides. ABDOMEN: Soft. Nontender. Bowel sounds active. No CVA tenderness. No ascites. No mass felt. EXTREMITIES: No leg edema. Full range of motion of all extremities, equal. NEUROLOGIC: No focal deficit. Cranial nerves II through XII are grossly intact. No headache, no double vision or headache. SKIN: Not dry. Intact. Turgor - normal. LYMPHATIC: No palpable lymph nodes/no lymphedema. MUSCULOSKELETAL: Normal joints with no swelling. Muscle tone is normal. ASSESSMENT: 1. SYNCOPE, ETIOLOGY UNKNOWN PLAN: 1. The patient is going to have holter monitor. So far, telemetry shows bundle branch block type of pattern with no remarkable arrhythmias or bradyarrhythmias. 2. The patient has fever of unknown origin, rule out temporal arteritis and/or endocarditis. So far cultures are negative. CONDITION: Stable. TIME SPENT: More than 30 minutes. Plan and coordination of the patient's care discussed in the presence of nurse. GIBRAN
--- NOTE | 2018-03-22 16:04 | US ---
EXAM: Bilateral carotid artery Doppler History: Confusion and weakness. Comparison: Brain MRI 03/22/2018 Technique: Multiple sonographic images through the bilateral internal carotid arteries were obtained . Color duplex Doppler was used to interrogate vascular flow. Findings: The right ICA peak systolic velocity is within normal limits measuring 120 cm/sec. The right ICA/cca PSV ratio is normal at 1.6. The right vertebral artery is patent and demonstrates antegrade flow. Burton scale images demonstrate mild to moderate plaque buildup within the right internal carotid arter y. The left ICA peak systolic velocity is within normal limits measuring 100 cm/sec. The left ICA/cca P SV ratio is normal at 1.8. The left vertebral artery is patent and demonstrates antegrade flow. Gra y scale images demonstrate mild to moderate plaque buildup within the left internal carotid artery. Impression: No significant hemodynamic stenosis of the bilateral internal carotid arteries.
--- NOTE | 2018-03-22 17:56 | MRI ---
EXAM: Brain MRI without contrast. HISTORY: Syncope, mild confusion, weakness, falls/head injury. COMPARISON: Head CT 03/20/2018. TECHNIQUE: Multiplanar, multisequence MR images were acquired of the brain without contrast. FINDINGS: The midline structures are central. The right cerebellar tonsil extends 2-3 mm below the foramen magnum and the left tonsil extends to the foramen magnum which is within normal variation. Th e ventricles and sulci are mildly prominent compatible with normal variation for the patient's age. There are no abnormal extra-axial fluid collections. A small dural ossification with dark and echo si gnal is present along the right posterior superior sagittal sinus. The brain parenchyma has no restricted diffusion to suggest acute hypoperfusion or infarction. Sever al small scattered T2 hyperintensities are present in the supratentorial white matter and there is mi nor bifrontal periventricular T2 hyperintensity. This is consistent with minor leukomalacia. There is no abnormal dark gradient echo signal. The corpus callosum is normal in configuration. The pituit christie gland is unremarkable. 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 Hyperostosis frontalis interna is present. There are no intraorbital masses. Focal mucosal thickening is present in a few ethmoid air cells roula aterally. The remainder of the paranasal sinuses, middle ears and mastoids are unremarkable. Flow voids are present in the major intracranial arteries. There is dolichoectasia of the cavernous segment of the left internal carotid artery. Dural venous sinuses are patent. IMPRESSION: 1. No intracranial mass, hemorrhage or acute cerebral infarct. 2. Minor leukomalacia likely due to chronic ischemic small vessel disease.
--- NOTE | 2018-03-22 18:44 | MRI ---
EXAM: [place] MRA without contrast. HISTORY: Syncope. COMPARISON: Brain MRI 03/22/2018. TECHNIQUE: 3-D [id number] MR angiography was acquired of the [place] without contrast. FINDINGS: The right internal carotid artery has no flow-limiting stenoses from the distal cervical s egment to the intracranial bifurcation. There is mild to moderate narrowing of the flow void at the junction of the clinoid and supraclinoid segments that is probably artifactual due to turbulent flow. The right middle cerebral artery has no flow-limiting stenoses. There is mild irregular narrowing of the distal right M1 segment proximal to the main bifurcation. The right anterior cerebral artery has mild narrowing proximally. There are no flow-limiting stenoses in the right anterior cerebral ar helen. The right posterior communicating artery is absent. The left internal carotid artery has no flow-limiting stenoses from the distal cervical segment to th e intracranial bifurcation. The left anterior cerebral artery A1 segment has mild narrowing proximal ly and is mildly hypoplastic. The A2 segment is of normal caliber. The anterior communicating arter y is not identified. The left middle cerebral artery has no flow-limiting stenoses to its bifurcatio n. There is a moderate stenosis in the left anterior intubation just beyond the origin. There is a origin of the left posterior cerebral artery which has a greater than 70% stenosis at the origi n and a second moderate stenosis 5 mm distally. The left vertebral artery is dominant to the right and there is mild tapering of the distal left vert ebral artery to the vertebrobasilar junction. The right vertebral artery is small with mild irregula rity proximally and distally. The basilar artery has mild tapering distally to the origin of the lef t superior cerebellar artery and ends as the right posterior cerebral artery. The right posterior ce rebral artery has a moderate stenosis 2.5 cm from the origin. The right superior cerebellar artery h as a moderate stenosis just beyond the origin. There are no aneurysms or vascular malformations in the [place]. IMPRESSION: 1. No aneurysms or vascular malformations are present in the [place]. 2. No hemodynamically significant stenoses are present in the anterior circulation of the [place]. 3. Greater than 70% stenosis origin left posterior cerebral artery which has a origin.
--- NOTE | 2018-03-22 20:06 | RS.PTINEVL ---
Subjective - Patient information Date of Evaluation: 03/22/18 Date of Arrival on Unit: 03/21/18 Admitted From:: Home Diagnosis: syncope, fever Usual Living Arrangement: son lives with her Home Environment: House, Stairs (few) (stairs to get to/from washing machine in the basement), Ramp Medical History: Hypertension Medical History Comments:: hypothyroidism LATEX ALLERGY?: No Surgical History: Tonsillectomy, Hysterectomy Medications: see chart Subjective Information/ Patient Comments:: pt alert and oriented x person and place. pt states she doesn't know why she has been passing out. - Level of function Prior to this admission, the patient could do the following:: Independent Selfcare, Independent ADL's, Independent Ambulation, Drive, Participated in Social Activities Outside home Current Level of Function: Partially Dependent Current Equipment Used at Home: A quad cane occasionally when going up steps. Interventions - Objective Patient Orientation: Person, Place Current Interventions: IV's, Telemetry Range of Motion - ROM Right Upper Extremity AROM: WFL's Left Upper Extremity AROM: WFL's Right Lower Extremity AROM: WFL's Left Lower Extremity AROM: WFL's Muscle Strength - Muscle Strength Right Upper Extremity Strength: Mild Weakness (grossly 4-/5) Left Upper Extremity Strength: Mild Weakness (grossly 4-/5) Right Lower Extremity Strength: Mild Weakness (difficult to follow commands for MMT. hip flex 4-/5, knee flex/ext 4-/5, ankle Df/PF 4-/5) Left Lower Extremity Strength: Mild Weakness (difficult to follow commands for MMT. hip flex 4-/5, knee flex/ext 4-/5, ankle Df/PF 4-/5) Sensation - Sensation Right Upper Extremity Sensation: Intact/Normal Left Upper Extremity Sensation: Intact/Normal Right Lower Extremity Sensation: Intact/Normal Left Lower Extremity Sensation: Intact/Normal Palpation Palpation Findings: Tenderness Comments:: around IV site, notified RN Balance - Sitting Balance and Reactions Static Sitting Balance: Fair Dynamic Sitting Balance: Poor Sitting Equilibrium Reactions: Delayed Left, Delayed Right Sitting Protective Reactions: Delayed Left, Delayed Right - Standing Balance and Reactions Static Standing Balance: Poor Dynamic Standing Balance: Poor Standing Equilibrium Reactions: Delayed Left, Delayed Right Standing Protective Reactions: Delayed Left, Delayed Right - Comments Balance Assessment Comments: pt with 2 episodes requiring min assist to prevent falling Functional Mobility - Bed Mobility Rolling R/L: CGA Scooting: Min Assist Supine to Sit: Min Assist - Transfers Sit to Stand: Min Assist Stand to Sit: Min Assist - Safety Awareness Safety Awareness: Poor ABRAHAM INDEX SCORE: 65 Ambulation - Ambulation Assistive Device Used: Gait belt Orthotic/Prosthetic Device: No Distance: 110ft Assistance needed with Ambulation: Min Assist Quality of Ambulation: min x 1 + 1 to pull chair behind in case of syncopal episode Gait Deviations: Forward posture, Short stride, Deviates from path Ambulation Comments: pt amb with decreased step length, when encouraged patient to take larger steps pt with difficulty processing activity and became very unsteady Factors Affecting Ambulation: Decreased Balance, Weakness, Decreased Coordination, Cognitive Status, Limited Endurance, Limited Sensation Treatment time - Time with patient Total treatment time: 26 Patient Education - Education Patient Education: Activity Modification, Education of Plan of Care Teaching Recipient: Patient Teaching Methods: Discussion (discussion with patient regarding safety with transfers and gait as well as POC) Assessment - Assessment Problem List:: Decreased level of function, Requires training/education, Decreased safety/Risk of falls, Weakness, Cognitive status limits abilities Rehab Potential: Good Further Therapy Indicated?: Yes Candidate for Swing Bed for Therapy Services?: pt is swing bed currently Evaluation Complexity: HISTORY: Medium (htn, syncope, falls), EXAM OF BODY SYSTEMS: Medium (gait, balance, strength, cognition), CLINICAL PRESENTATION: Medium (evolving), CLINICAL DECISION MAKING: Medium Short Term Goals GOAL #1: pt demonstrate independence with bed mobility Goal to be met by: 03/26/18 GOAL #2: Transfer sup to/from sit to/from stand CGA Goal to be met by: 03/26/18 GOAL #3: pt amb 140ft w/wo AAD with CGA with no LOB and improved sequencing Goal to be met by: 03/26/18 GOAL #4: pt with improved LE strength 4 to 4+/5 to improve gait safety Goal to be met by: 03/26/18 Correction Goals GOAL #1: pt transfer sup to/from sit to/from stand with supervision Goal to be met by: 03/30/18 GOAL #2: pt amb functional household distances w/wo AAD with supervision no LOB Goal to be met by: 03/30/18 GOAL #3: pt with improved abraham index > 70 Goal to be met by: 03/30/18 Plan Plan of Care: Therapeutic EX, Therapeutic Activity Other:: gait training Frequency of Treatment: 1-2 X day, as tolerated Duration of Treatment: 9 days Anticipated Discharge Destination: Home Treatment Diagnosis (ICD 10 Codes): R26.2 difficulty walking. R 26.81 balance impaired Has the Physician been added for Co-signature?: Yes
[2018-03-23] MEDS ORDERED: POTASSIUM CHLORIDE 20 MEQ VIAL IV ONE ×2 (01:02→20:18)
[2018-03-23] MEDS: [UNRECOGNIZED DRUG - OTHER] IV SCH ×3 (01:05→20:19)
[2018-03-23] MEDS: POTASSIUM CHLORIDE IV SCH ×3 (01:05→20:19)
[2018-03-23] MEDS: DEXTROSE 5% IV SCH ×3 (01:05→20:19)
--- NOTE | 2018-03-23 08:12 | ECHO2D ---
Date of Exam: 03/21/18 Ordering Physician: DR. WALDO MARADIAGA Room # : 118 Reason for Echo: SYNCOPAL EPISODE, WEAKNESS Murmurs: SYSTOLIC, DIASTOLIC M-Mode Normal Adult Results LV Dimensions Normal Adult Results AoV Opening excursions >1.6 1.4 LVEDD-base- 3.5-5.8 4.3 Ao root dimensions 2.0-3.7 3.2 LVESD-base- 3.1-4.6 L. Atrium dimensions 1.9-3.8 4.2 Post. Wall thickness 0.8-1.1 1.3 IV septum (thickness) 0.7-1.2 1.4 Post. Wall excursion 0.72-1.3 NORMAL Septal motion NORMAL Systolic motion R. Ventricular cavity 1.5-2.0 NORMAL LVEF 60% 64% Paradoxical septal wall motion NORMAL 2-D : ENLARGED LEFT ATRIAL CAVITY--NORMAL LEFT VENTRICULAR CONTRACTILITY-- NORMAL VALVES--NORMAL LEFT VENTRICLE SIZE, NO THROMBUS, NO EFFUSION, CALCIFIC AORTIC VALVES WITH NO STENOSIS M-MODE: MV: NORMAL AV: CALCIFIC AORTIC VALVES TV: NORMAL PV: NORMAL CHAMBER SIZE: ENLARGED LEFT ATRIAL CAVITY WALL MOTION: NORMAL PERICARDIUM: NORMAL INTERPRETATION: 1. LEFT VENTRICULAR HYPERTROPHY WIT ENLARGED LEFT ATRIAL CAVITY 2. CALCIFIC AORTIC VALVES--NO STENOSIS 3. MILD AORTIC REGURGITATION 4. NORMAL LEFT VENTRICULAR CONTRACTILITY MTDD
[2018-03-23] MEDS: NON-FORMULARY MEDICATION (Calcium Carb/Vitamin D3/Vit K1 [Calcium + D Soft Chewable Tab] 1 PO SCH (08:41)
[2018-03-23] MEDS: DECADRON 4 MG/ML SDV IM SCH (08:41)
[2018-03-23] MEDS: DOXY-100 100 MG in SODIUM CHLORIDE 100 ML IV SCH ×2 (08:42→20:19)
[2018-03-23] MEDS: LOVENOX SUBCUT SCH (08:48)
[2018-03-23] MEDS: FLAXSEED OIL 1000 MG PO SCH (08:51)
[2018-03-24 05:56] VITALS: BP 138/72; TEMP 98.2
[2018-03-24] MEDS: NON-FORMULARY MEDICATION (Calcium Carb/Vitamin D3/Vit K1 [Calcium + D Soft Chewable Tab] 1 PO SCH (08:56)
[2018-03-24] MEDS: DOXY-100 100 MG in SODIUM CHLORIDE 100 ML IV SCH (08:57)
[2018-03-24] MEDS: FLAXSEED OIL 1000 MG PO SCH (08:57)
[2018-03-24] MEDS: LOVENOX SUBCUT SCH (08:59)
--- NOTE | 2018-03-24 09:33 | HOLTER ---
PATIENT INFORMATION AND COMMENTS Attending Physician: DR. WALDO MARADIAGA Indications: SYNCOPAL EPISODES, WEAKNESS __ Patient Medications: HTCZ, ZESTRIL __ Pre-procedure Summary: Protocol: Standard Heart Rate Started: 03/21/18 1359 Minimum: 51 BPM Weight: 140 LBS Ended: 03/22/18 1334 Maximum: 156 BPM Height: 64" Duration: 24 HOURS Average: 66 BPM _ INTERPRETATIONS/OBSERVATIONS: 1. BASIC RHYTHM: SINUS, RATE 50 BPM TO 110 BPM, AVERAGE 65 BPM 2. RARE PAC'S AND PVC'S 3. NO ST-T WAVE CHANGES FROM BASELINE 4. ACTIVITY LOG NOT MAINTAINED MTDD
--- NOTE | 2018-03-27 08:56 | PTDC ---
Date of Evaluation:03/21/18 Diagnosis:[syncope, fever] Number of visits:[4] Last Date of Service:[03/24/18] Reason For Discharge:[pt dc home] Discharge Summary:[pt improved to transfer sup to/from sit to/from stand SBA to CGA. pt amb without AD 90ft CGA holding handrail in hallway. pt refused to use AD. pt continues with LE weakness, decreased balance and decreased gait safety. pt requested to be dc home. ] GIBRAN
--- NOTE | 2018-04-03 14:56 | CONS ---
DATE OF CONSULTATION: 03/21/18 REASON FOR CONSULTATION/HISTORY OF PRESENT ILLNESS: Fever of unknown origin-syncope. patient had been seeing Dr. Meléndez for pain in the left neck (Lymphadenopathy). She said she had removed several ticks recently and had been running fever intermittently. She remembered having a rash on her arms/legs and face. Recently she has been feeling easily fatigued and weak. When up and about she becomes nauseated and faints. She had a syncope episode while in Dr. Meléndez's office and was sent to ER. REVIEW OF SYSTEMS: CONSTITUTIONAL: No night sweats. Fatigue-severe. Fever as high as 101.7. HEENT: Eyes: No visual changes. No eye pain. No eye discharge. ENT: No sinus drainage. No epistaxis. No sinus pain. No sore throat. No odynophagia. No ear pain. No congestion. RESPIRATORY: No cough, no congestion. No hemoptysis. No shortness of breath. CARDIOVASCULAR: No angina symptoms. No CHF symptoms. No atypical chest pain for CAD. No palpitations. No orthopnea. GASTROINTESTINAL: No abdominal pain. No nausea or vomiting. No diarrhea or constipation. No hematemesis. No hematochezia. GENITOURINARY: No urgency. No frequency. No dysuria. No hematuria. No obstructive symptoms. No discharge. No pain. No significant abnormal bleeding. MUSCULOSKELETAL: No musculoskeletal pain. No joint swelling. Osteoarthritis pain-generalized. NEUROLOGICAL: Headache. No neck pain. Black outs, multiple episodes. No seizures. Dizziness. PSYCHIATRIC: Not anxious. No depression. No suicidal thoughts. No homicidal thoughts. SKIN: No rash. No lesions. No wounds. ENDOCRINE: No unexplained weight loss. No weight gain. HEMATOLOGIC/LYMPHATIC: No anemia. No purpura. No petechiae. No prolonged or excessive bleeding. No palpable lymph nodes. MEDICATIONS: Calcium D daily Lotrimin AF 24 grams TP PRN Flax seed oil 1,000mg PO daily Lisinopril 5mg PO daily ALLERGIES: Influenza virus vaccine PAST MEDICAL HISTORY/PAST SURGICAL HISTORY: Hypertension Hypothyroidism Tonsillectomy Hysterectomy Hepatitis as a child-no liver damage Diverticulitis Tubal ligation SOCIAL/PERSONAL/FAMILY HISTORY: Nonsmoker, Alcohol use and resides with son. PHYSICAL EXAMINATION: GENERAL: The patient is alert and oriented times three. VITAL SIGNS: Pulse 60, blood pressure 113/59, temperature 98.8, oxygen saturation 96% room air. Weight 140. HEENT: Head normocephalic, atraumatic. Eyes: Extraocular muscles are intact. Pupils are equal, round and reactive to light and accommodation. Ears: No lesions. Nose appeared normal. Throat: No exudate or erythema. NECK: Supple. No JVD, no carotid bruit. No lymphadenopathy or thyromegaly. LUNGS: Clear to auscultation. Percussion note normal. Chest symmetrical. HEART: S1, S2, no S3. Systolic murmurs. No cyanosis or clubbing. No ascites. Pulses: Dorsalis pedis and posterior tibial pulses +1. ABDOMEN: Soft. Nontender. Bowel sounds active. No CVA tenderness. No mass felt. EXTREMITIES: No edema. Full range of motion of all extremities, equal. NEUROLOGIC: No focal deficit. Cranial nerves II through XII are grossly intact. No headache, no double vision or headache. SKIN: Not dry. Intact. Turgor - normal. LYMPHATIC: No palpable lymph nodes/no lymphedema. MUSCULOSKELETAL: Normal joints with no swelling. Muscle tone is normal. LABS: WBC 4.67, hgb 12.7, hct 37.7, plt count 166, Sodium 137, potassium 3.7, chloride 104, Bicarb 24, BUN 20, creatinine 0.80, GFR 70 and Glucose 145. Blood culture and sensitivity negative 2 days. Urine culture and sensitivity negative mixed growth less than 30,000cc. Telemetry sinus bradycardia with bundle branch block ASSESSMENT: 1. Syncope 2. Fever RECOMMENDATIONS: 1. Telemetry-sinus rhythm no ST-T wave 2. Carotid scan 3. MRI of brain 4. Echo - endocarditis valves 5. Agreed with management so far Thanks for referral [facility]
--- NOTE | 2018-05-29 07:28 | PN ---
DATE OF SERVICE: 03/22/18 SUBJECTIVE: This patient was admitted to transition care on 03/21/18. The patient today at 5 :39pm is alert and oriented and not dyspneic or tachypneic. She denies any chills. VITALS: Temperature 97.2, pulse 75, blood pressure 130/65, respiratory rate 16, oxygen saturation 95 at room air. He is receiving continued infusion of Doxycycline every 12 hours. LUNGS: Remain clear HEART: Audible with good tones. There is no rigidity and some tenderness in the left carotid area. Her appetite remained poor and she did eat about 25% of dinner. She had two bowel movements. CONDITION: Stable. MTDD
--- NOTE | 2018-05-29 07:31 | PN ---
DATE OF SERVICE: 03/23/18 SUBJECTIVE: The patient is alert and oriented times four, not dyspneic or tachypneic. Her appetite seems to be better and her disposition is better. She is cheerful and smiling. She did eat 50% of her dinner today. Her color is good. LUNGS: Clear to auscultation HEART: Normal sinus rhythm LOWER EXTREMITIES: no tenderness in the calf muscles. VITALS: Temperature 98.5, pulse 67, blood pressure 159/70, respiratory rate 20 and oxygen saturation 97 at room air CONDITION: Stable and satisfactory MTDD
--- NOTE | 2018-05-29 07:39 | DS ---
DATE OF SERVICE: 03/24/18 PATIENT IDENTIFICATION: 78 year old female admitted to initially to the hospital on 03/18/18 because of fever and pain on both sides of the neck as well as in the left carotid area with some swelling. She also had a history of tick bite multiple times, 2-3 weeks ago. The patient had fallen out of bed on 03/20/18 and the work up was negative for any fractures. The patient did spike a fever of 101.4 in the evening. The patient the following was alert and afebrile and it was decided to transfer her to transitional care for continue antibiotic administration. The patient while in transitional care with stable vital signs, temperature remained normal except for one at 99.0. The patient had not had any syncopal episodes. The blood pressure was within of normal. The patient had several studies done because of the syncopal episode on 03/20. The patient had Doppler studies of the carotid showing now significant hemodynamically unremarkable. MRI brain in intracranial mass or hemorrhage or acute cerebral infarct, minor leukomalacia likely due to chronic ischemic small vessel disease. MRA showed no aneurysm or vascular malformation of the [place] of [place]. No hemodynamically significant stenosis of the anterior circulation of [place]. 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 Cardiology consultation also was requested because of the syncopal episode. A Holter Monitor and echocardiogram was performed and no rhythm that would explain the syncope. Echocardiogram showed a left ventricular ejection fraction of 64%, enlarged left atrial cavity, calcific aortic valves with no stenosis. The patient was seen by physical therapy and was discharged from physical therapy. The patient was discharged from transitional care with the following vital signs; 98.2 temperature, pule 62, blood pressure 138/72, respiratory rate 12 and oxygen saturation 95 at room air. 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 She will be continued on Doxycycline 100mg twice a day two hours after breakfast and two hours after supper. I did explain to the patient why it is two hours. I did tell her that taking the medication on a full stomach would probably preclude absorption of the medication. Taking it on an empty stomach is ideal however it may produce nausea prompting sensation of medication. A compromise was done to take it two hours after breakfast and two hours after supper. The patient showed good understanding. Resume all her previous medications. The patient is to see me 03/27/18 at 1:30pm and before if there is any concern or problems. She was further instructed to keep the appointment on 04/07/18. The patient was scheduled for EEG at [facility] on 04/11/18. Medication Doxycycline was given for a total of 10 days from the time of discharge. FINAL DIAGNOSES: 1. Febrile illness probably secondary to Rickettsial disease versus viral 2. Hypertension, controlled 3. History of syncopal episode 4. History of fall at the hospital with no obvious injury PROGNOSIS: Guarded. TIME SPENT: GREATER THAN 30 MINUTES MTDD
--- NOTE | 2018-05-29 07:40 | PN ---
DATE OF SERVICE: 03/24/18 SUBJECTIVE: The patient today is alert and oriented times four. Her CBC showed normal WBC. Hgb and hct below normal as well as RBC. Electrolytes are normal, renal panel normal, liver normal. Alkaline phosphatase normal, total protein below normal at 5.6 and albumin 2.5. Her vital signs early in the morning showed a temperature 98.2, pulse 62, blood pressure 138/72, respiratory rate 12, oxygen saturation 95% on room air. The patient did eat about 75% of her dinner. She had one bowel movement. The patient denies any chills or fever or headaches or visual disturbances. She denies any chest pain or GI disturbances. No significant joint pains. The patient is then discharged to continue the antibiotics for 10 days; Doxycycline twice a day. MTDD
== END 2018-03-24 18:22 | disposition home or self-care (01) | DRG 864 ==
LOC: MEDSURG B 15:33
PROVIDERS: ADMIT General Practice; ATTEND General Practice
DX: R50.9 Fever, unspecified (principal); R42 Dizziness and giddiness; R55 Syncope and collapse; R51 Headache; R22.0 Localized swelling, mass and lump, head; H92.02 Otalgia, left ear; I10 Essential (primary) hypertension
CPT/HCPCS: 36415; 80053; 85007; 85025; 97802; 99223; 99232

== ENCOUNTER 2018-04-03 11:07 | Outpatient (CLI) | END 2018-04-03 11:08 | disposition home or self-care (01) | LOC: FCC-LAB 11:07 | PROVIDERS: ATTEND General Practice | DX: E78.5 Hyperlipidemia, unspecified (principal); R31.29 Other microscopic hematuria; Z79.899 Other long term (current) drug therapy | CPT/HCPCS: 36415; 80053; 80061; 81001; 85025 ==

== ENCOUNTER 2018-04-07 16:41 | Outpatient (CLI) | payer OTHER | END 2018-04-07 16:42 | disposition home or self-care (01) | LOC: FCC-LAB 16:41 | PROVIDERS: ATTEND General Practice | DX: R53.1 Weakness (principal); R53.83 Other fatigue | CPT/HCPCS: 36415; 86617; 86710; 86757 ==

== ENCOUNTER 2018-05-08 15:15 | Outpatient (CLI) | END 2018-05-08 15:16 | disposition home or self-care (01) | LOC: FCC-LAB 15:15 | PROVIDERS: ATTEND General Practice | DX: R53.83 Other fatigue (principal); W57.XXXA Bitten or stung by nonvenomous insect and other nonvenomous arthropods, initial encounter | CPT/HCPCS: 36415; 86617; 86710; 86757 ==

== ENCOUNTER 2019-02-05 08:27 | Outpatient (CLI) | payer OTHER | END 2019-02-05 08:28 | disposition home or self-care (01) | LOC: RHC-LAB 08:27 | PROVIDERS: ATTEND General Practice | DX: E78.5 Hyperlipidemia, unspecified (principal); Z79.899 Other long term (current) drug therapy; R31.29 Other microscopic hematuria; I10 Essential (primary) hypertension; R55 Syncope and collapse | CPT/HCPCS: 36415; 80053; 80061; 81001; 85025 ==

== ENCOUNTER 2019-06-11 08:24 | Outpatient (CLI) | payer OTHER | END 2019-06-11 08:25 | disposition home or self-care (01) | LOC: RHC-LAB 08:24 | PROVIDERS: ATTEND General Practice | DX: E78.5 Hyperlipidemia, unspecified (principal); Z79.899 Other long term (current) drug therapy | CPT/HCPCS: 36415; 80053; 80061; 81001; 84443; 85025 ==